=== PATIENT | male | born 1990 | race Caucasian/White ===

== ENCOUNTER 2016-11-29 20:04 | Emergency (ER) | payer OTHER ==
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
[2016-11-29] MEDS ORDERED: AUGMENTIN 500-1 EACH PO (22:14)
--- NOTE | 2016-11-29 22:37 | RADIOLOGY REPORT ---
EXAMINATION: XR TIBIA AND FIBULA, RIGHT CLINICAL INFORMATION: Status post dog bite. COMPARISON: None TECHNIQUE: AP and lateral views of the right tibia and fibula were obtained. FINDINGS: Bone mineral density is maintained without evidence of fracture or dislocation. No focal osseous lesions are seen. Joint space is maintained without productive or erosive changes. No radiopaque foreign bodies are identified. There is no subcutaneous emphysema. IMPRESSION: Unremarkable right leg.
[2016-11-29 22:58] VITALS: BP 120/73
== END 2016-11-29 22:58 ==
LOC: ERH 20:04
DX: S81.851A Open bite, right lower leg, initial encounter (principal); W54.0XXA Bitten by dog, initial encounter; Y93.9 Activity, unspecified; Y92.9 Unspecified place or not applicable
CPT/HCPCS: 73590-RT; 90471; 90714

== ENCOUNTER 2016-12-02 16:30 | Emergency (ER) | payer OTHER ==
[~2016-12-02] VITALS: Ht 172.7 cm; Wt 68.0 kg
[~2016-12-02 16:30] MED LIST: AUGMENTIN 500-1 EACH PO
[2016-12-02 16:38] VITALS: BP 132/80
[2016-12-02] MEDS ORDERED: ADVIL LIQUI-GE200 M1 PO (17:05)
[2016-12-02] MEDS ORDERED: METHADONE10 MG/5 M2 PO (17:05)
[2016-12-02] MEDS ORDERED: CLEOCIN HCL300 M1 PO (18:14)
[2016-12-02] MEDS ORDERED: BACTROBAN15 GM TOP (18:14)
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
== END 2016-12-02 18:21 ==
LOC: ERH 16:30
DX: S81.851D Open bite, right lower leg, subsequent encounter (principal); L03.115 Cellulitis of right lower limb; W54.0XXD Bitten by dog, subsequent encounter; Y93.9 Activity, unspecified; Y92.9 Unspecified place or not applicable
CPT/HCPCS: 87070